=== PATIENT | male | born 1990 | race Hispanic/Latino ===

== ENCOUNTER → 2016-11-23 | Outpatient (RCR) | payer SELFPAY | END | disposition home or self-care (01) | LOC: M OUTALCOH 10-26 16:00 | PROVIDERS: ATTEND Psychiatry & Neurology Psychiatry | DX: F10.10 Alcohol abuse, uncomplicated (principal) ==

== ENCOUNTER 2017-07-13 13:49 | Emergency (ER) | payer SELFPAY ==
[~2017-07-13] VITALS: Ht 172.7 cm; Wt 84.1 kg
[2017-07-13] MEDS ORDERED: FLUC10TA PO (15:33)
[2017-07-13 15:44] VITALS: BP 114/80
== END 2017-07-13 15:45 | disposition home or self-care (01) ==
LOC: M ED 13:49
DX: B37.0 Candidal stomatitis (principal); B35.4 Tinea corporis

== ENCOUNTER 2019-02-24 20:28 | Emergency (ER) | payer SELFPAY ==
[~2019-02-24] VITALS: Ht 172.7 cm; Wt 85.9 kg
[~2019-02-24 20:28] MED LIST: FLUC10TA PO
[2019-02-24 20:35] VITALS: BP 118/63
[2019-02-24] MEDS ORDERED: LIDOCAINE W/EPINEPHRINE 1% 20ML VIAL As Ordered ONE (21:17)
[2019-02-24] MEDS ORDERED: LIDOCAINE W/EPINEPHRINE 1% 20ML VIAL SC ONE (22:30)
== END 2019-02-24 23:44 | disposition home or self-care (01) ==
LOC: M ED 20:28
DX: S01.511A Laceration without foreign body of lip, initial encounter (principal); W50.0XXA Accidental hit or strike by another person, initial encounter; Y92.89 Other specified places as the place of occurrence of the external cause; Y93.89 Activity, other specified; Y99.9 Unspecified external cause status; Z72.0 Tobacco use